=== PATIENT | female | born 1970 | race African-American/Black ===

== ENCOUNTER 2017-06-28 17:44 | Emergency (ER) | payer BC ==
[~2017-06-28] VITALS: Ht 165.1 cm; Wt 86.2 kg
[~2017-06-28 17:44] MED LIST: ADIPEX-P37.5 M2 PO; ANAPROX DS550 MG PO; AZO BLADDER CO300 MG PO; BACTRIM DS 8001 TA1 PO; CIPRO250 MG PO; CIPROFLOXACIN500 MG PO; DOXYCYCLINE MO100 MG PO; LEVAQUIN250 MG PO; MOTRIN800 MG PO; NKHM; PHENERGAN W/DM120 ML PO; PREVACID SOLUTA30 MG PO; PYRIDIUM200 MG PO
[2017-06-28 18:12] LABS: BILIRUBIN NEGATIVE (NEGATIVE); BLOOD 2+ (NEGATIVE); CLARITY SL CLOUDY (CLEAR); COLOR YELLOW (YELLOW); GLUCOSE NEGATIVE (NEGATIVE); KETONE TRACE (NEGATIVE); LEUKO ESTERASE TRACE (NEGATIVE); NITRITE POSITIVE (NEGATIVE); UROBILINOGEN 0.2 E.U./dl (0.2-1.0)
[2017-06-28 18:18] LABS: BACTERIA 4+
[2017-06-28 18:20] LABS: RBC 41-50 rbc/hpf (0-2)
== END 2017-06-28 18:59 | disposition home or self-care (01) ==
LOC: ED 17:44
PROVIDERS: Student in an Organized Health Care Education/Training Program
DX: N39.0 Urinary tract infection, site not specified (principal)

== ENCOUNTER 2017-10-15 22:00 | Emergency (ER) | payer SELFPAY ==
[~2017-10-15] VITALS: Ht 165.1 cm; Wt 93.0 kg
[2017-10-15] MEDS ORDERED: CYCLOBENZAPRINE5 M3 PO (23:02)
[2017-10-15] MEDS ORDERED: DELTASONE20 M1 PO (23:02)
== END 2017-10-15 23:27 | disposition home or self-care (01) ==
LOC: ED 22:00
DX: M54.16 Radiculopathy, lumbar region (principal); Z79.899 Other long term (current) drug therapy

== ENCOUNTER 2017-10-17 18:41 | Emergency (ER) | payer SELFPAY ==
[~2017-10-17] VITALS: Ht 165.1 cm; Wt 94.3 kg
[~2017-10-17 18:41] MED LIST changes: +CYCLOBENZAPRINE5 M3 PO; +DELTASONE20 M1 PO
[2017-10-17 19:25] LABS: BASO % 0.1 % (0.0-1.0); EOS % 0.1 % (1.0-4.0); HEMOGLOBIN 12.3 g/dl (12.0-16.0); LYMPH # 2.3 10*3/uL (1.3-4.4); LYMPH % 15.2 % (27.0-41.0); MEAN CELL VOLUME 88.2 fl (81.0-99.0); MEAN CORPUSCULAR HGB 28.5 pg (27.0-31.0); MEAN CORPUSCULAR HGB CONC 32.4 g/dl (33.0-37.0); MEAN PLATELET VOLUME 9.1 fl (9.6-12.3); MONO # 0.8 10*3/uL (0.1-1.0); MONO % 4.9 % (3.0-9.0); NEUT # 12.2 10*3/uL (2.3-7.9); NEUT % 78.9 % (47.0-73.0); PLATELET COUNT AUTOMATED 327 10*3/uL (130-400); RED BLOOD COUNT 4.31 10*6/uL (4.10-5.10); RED CELL DISTRI WIDTH 14.6 % (0-14.5); WHITE BLOOD COUNT 15.4 10*3/uL (4.8-10.8)
[2017-10-17 19:31] LABS: BILIRUBIN NEGATIVE (NEGATIVE); BLOOD 1+ (NEGATIVE); CLARITY CLEAR (CLEAR); COLOR YELLOW (YELLOW); GLUCOSE NEGATIVE (NEGATIVE); KETONE NEGATIVE (NEGATIVE); LEUKO ESTERASE NEGATIVE (NEGATIVE); NITRITE NEGATIVE (NEGATIVE); UROBILINOGEN 0.2 E.U./dl (0.2-1.0)
[2017-10-17 19:39] LABS: EPITHELIAL CELLS 0-2; WBC 0-2 wbc/hpf (0-5)
[2017-10-17 19:40] LABS: ALBUMIN 3.5 gm/dl (3.1-4.5); ALKALINE PHOSPHATASE 64 U/L (45-117); BUN 20 mg/dl (7-24); CHLORIDE 106 mmol/L (98-107); CREATININE 1.03 mg/dL (0.55-1.02); POTASSIUM 3.8 mmol/L (3.5-5.1); SGOT/AST 13 IU/L (3-35); SGPT/ALT 23 U/L (12-78); SODIUM 139 mmol/L (136-145); TOTAL PROTEIN 7.3 gm/dL (6.4-8.2)
[2017-10-17] MEDS ORDERED: Orphenadrine C100 MG PO (21:53)
== END 2017-10-17 21:58 | disposition home or self-care (01) ==
LOC: ED 18:41
PROVIDERS: Nurse Practitioner Family
DX: M54.16 Radiculopathy, lumbar region (principal); M51.06 Intervertebral disc disorders with myelopathy, lumbar region

== ENCOUNTER 2018-10-11 01:37 | Emergency (ER) | payer BC ==
[~2018-10-11] VITALS: Ht 165.1 cm; Wt 80.7 kg
[~2018-10-11 01:37] MED LIST changes: +Orphenadrine C100 MG PO
[2018-10-11] MEDS ORDERED: ERYTHROMYCIN OPH1 GM OPH (01:59)
== END 2018-10-11 02:47 | disposition home or self-care (01) ==
LOC: ED 01:37
DX: S05.02XA Injury of conjunctiva and corneal abrasion without foreign body, left eye, initial encounter (principal); G24.5 Blepharospasm; X58.XXXA Exposure to other specified factors, initial encounter; Y93.89 Activity, other specified; Y92.239 Unspecified place in hospital as the place of occurrence of the external cause; Y99.8 Other external cause status

== ENCOUNTER → 2020-06-25 | Outpatient (CLI) | payer BC ==
[~2020-06-25] MED LIST changes: +ERYTHROMYCIN OPH1 GM OPH
== END | disposition home or self-care (01) ==
LOC: COVID19 15:39
PROVIDERS: ATTEND Internal Medicine
DX: U07.1 COVID-19 (principal)

== ENCOUNTER 2023-11-26 08:22 | Emergency (ER) | payer BC ==
[~2023-11-26] VITALS: Ht 165.1 cm; Wt 72.1 kg
[2023-11-26 08:56] LABS: BILIRUBIN Negative (Negative); BLOOD Negative (Negative); CLARITY Clear (Clear); COLOR Yellow (Yellow); GLUCOSE Negative (Negative); KETONE Negative (Negative); LEUKO ESTERASE Trace (Negative); NITRITE Negative (Negative); PH 7.5 (4.5-8.0); SPECIFIC GRAVITY <= 1.005 (1.001-1.030)
[2023-11-26] MEDS ORDERED: CEPHALEXIN500 M1 PO (09:12)
[2023-11-26 09:17] LABS: BACTERIA 2+; RBC 0-2 rbc/hpf (0-2)
[2023-11-26] MEDS ORDERED: FLUCONAZOLE100 MG PO (09:23)
== END 2023-11-26 09:29 | disposition home or self-care (01) ==
LOC: ED 08:22
PROVIDERS: Internal Medicine
DX: N39.0 Urinary tract infection, site not specified (principal); J02.0 Streptococcal pharyngitis